=== PATIENT | female | born 1980 | race Asian ===

== ENCOUNTER 2021-04-07 18:45 | Emergency (ER) | payer BC ==
[~2021-04-07] VITALS: Ht 157.5 cm; Wt 61.2 kg
[2021-04-07] MEDS ORDERED: ZITHROMAX250 MG PO (19:58)
== END 2021-04-07 20:15 | disposition home or self-care (01) ==
LOC: FSED 19:39
DX: J02.9 Acute pharyngitis, unspecified (principal); J01.90 Acute sinusitis, unspecified
CPT/HCPCS: 83518; 99282; U0002

== ENCOUNTER → 2022-01-31 | Outpatient (CLI) | payer BC ==
[~2022-01-31] MED LIST: ZITHROMAX250 MG PO
== END ==
LOC: MRI 10:16
PROVIDERS: ATTEND Nurse Practitioner Adult Health
DX: M54.6 Pain in thoracic spine (principal)
CPT/HCPCS: 72146